=== PATIENT | female | born 1975 | race American Indian/Alaskan Native ===

== ENCOUNTER 2016-07-24 09:17 | Outpatient (CLI) | payer OTHER ==
--- NOTE | 2016-07-24 10:40 | Ultrasound Report ---
Left mammogram and left breast ultrasound: History: Known left breast asymmetry with recent biopsy. Routine views of the left breast are compared to an exam from [facility] on February 16, 2016. There is an oval area of tissue located in the superolateral left breast containing a biopsy marker near the inferolateral margin the tissue appears well defined in most of its circumference. It is somewhat oval shaped having a maximum dimension of 8.4 cm the findings are unchanged over prior study. Ultrasound of the left breast at 12:00 demonstrates an oval relatively well demarcated area of inhomogeneous tissue having a maximum dimension 4.3 cm. The global ultrasound of the remaining breast tissue demonstrates a heterogeneous echo pattern with no definable areas, distortion, or shadowing. These findings are identical to the ultrasound in January at that time for biopsy. The focal area of abnormality identified at 12:00 corresponds to an area described at 1:00 on the prior study. Impression: Stable findings consistent with fibrocystic breast tissue. Recommendation: Followup as per your protocol. BI-RADS CATEGORY: 2 = Benign ACR BI-RADS MAMMOGRAPHIC CODES: 0 = Needs additional imaging evaluation; 1 = Negative; 2 = Benign; 3 = Probably benign; 4 = Suspicious; 5 = Malignant; 6 = Known biopsy-proven malignancy COMMENT: 1. Dense breast tissue, i.e., adenosis, fibrocystic changes, etc., may obscure an underlying neoplasm. 2. Approximately 10% of cancers are not detected with mammography. 3. A negative mammography report should not delay biopsy if a clinically suspicious mass is present.
== END 2016-07-24 09:18 | disposition home or self-care (01) ==
LOC: MAMMO 09:17
PROVIDERS: ATTEND Surgery
DX: N63 Unspecified lump in breast (principal)
CPT/HCPCS: 76641; G0206

== ENCOUNTER 2018-01-27 14:32 | Outpatient (CLI) | payer OTHER ==
--- NOTE | 2018-01-27 16:43 | Mammography Report ---
BILATERAL DIGITAL DIAGNOSTIC MAMMOGRAM AND LEFT BREAST ULTRASOUND: 01/27/18 14:32:00 CLINICAL: Bilateral asymmetries and left calcifications on the recent screening mammogram. COMPARISON:[facility] recent screening. FINDINGS: Additional mammographic views of the right breast were performed and are negative.Satisfactory effacement of right asymmetries. A few scattered calcifications in the upper left breast and no suspicious calcifications. An oval partially circumscribed left outer mass correlates with a previously biopsied lesion. There is an adjacent biopsy clip. It measures approximately 8 x 6 cm compared to 7 x 4 cm on 02/16/16. Ultrasound of the outer left breast was performed and demonstrated an oval circumscribed heterogeneous mass which correlates with the mammographic mass. It measures 5 x 5 by 1.4 cm. The mass consists of normal appearing breast parenchyma with no suspicious finding. IMPRESSION: Negative right breast and a benign left outer breast mass consisting of asymmetric fibroglandular structures. The difference in size between exams is probably related to differences in compression on the mammogram. Benign left calcifications. BI-RADS CATEGORY: 2 - - Benign RECOMMENDATION: Routine mammographic screening. ACR BI-RADS MAMMOGRAPHIC CODES: 0 = Needs additional imaging evaluation; 1 = Negative; 2 = Benign; 3 = Probably benign; 4 = Suspicious; 5 = Malignant; 6 = Known biopsy-proven malignancy COMMENT: 1. Dense breast tissue, i.e., adenosis, fibrocystic changes, etc., may obscure an underlying neoplasm. 2. Approximately 10% of cancers are not detected with mammography. 3. A negative mammography report should not delay biopsy if a clinically suspicious mass is present. COMMENT: Patient follow-up letters are generated via our [employer] application.
== END 2018-01-27 14:33 | disposition home or self-care (01) ==
LOC: SPVWC 14:32
PROVIDERS: ATTEND Surgery
DX: R92.8 Other abnormal and inconclusive findings on diagnostic imaging of breast (principal)
CPT/HCPCS: 77066